=== PATIENT | female | born 1980 | race Hispanic/Latino ===

== ENCOUNTER 2016-09-06 08:22 | Emergency (ER) | payer SELFPAY ==
[2016-09-06] MEDS ORDERED: INSULIN REGULAR HUMAN 100 UNITS/ML ML ONE (10:03)
[2016-09-06] MEDS ORDERED: BACITRACIN 1 APP/PKT PKT TOPICAL ONE (10:33)
--- NOTE | 2016-09-06 11:12 | ER PHYSICIAN DOCUMENTATION ---
Physician Documentation [facility] Name:Joellen Muhammad Age:36 yrs Sex:Female :1980 Arrival Date:09/06/2016 Time:08:22 Bed1 Private MD: iNc Marcus Disposition: 09/06/16 09:41 Discharged to Home/Self Care. Impression: Diabetes Mellitus, Type 1 with Hyperglycemia, Wound Infection. - Condition is Fair. - Discharge Instructions: DIABETIC HYPERGLYCEMIA, Blebs - BLISTER. - Prescriptions for Bactrim DS 160- 800 mg Oral Tablet - take 1 tablet by ORAL route every 12 hours for 7 days; 14 tablet. - Medical Reconciliation form form. - Follow up: Replaced By [facility]; When: 4- 6 days; Reason: Recheck today's complaints, Continuance of care. - Problem is an ongoing problem. - Symptoms have improved. HPI: 09/06 09:28 This 36 yrs old Female presents to ER via Private Vehicle with complaints of sc Wound Infection - left foot. 09:28 The patient presents with infected blister. The complaints affect the left foot. sc Context: The problem was sustained at home, resulted from shoes rubbing, peripheral neuropathy, feels like arches collapsing. Associated signs and symptoms: Pertinent positives: hyperglycemia, non compliant with insulin. Historical: - Allergies: No known drug Allergies; - Home Meds: 1. insulin glargine 100 unit/mL (3 mL) subcutaneous inpn (Last dose: Unknown) - PMHx: Diabetes - IDDM; - PSHx: None; - Tetanus: < 10 years. - Ebola Screening: : Patient negative for fever greater than or equal to 101.5 degrees Fahrenheit, and additional compatible Ebola Virus Disease symptoms. Patient denies exposure to infectious person. Patient denies travel to an Ebola-affected area in the 21 days before illness onset. No symptoms or risks identified at this time. . - Immunization history: Flu Vaccine < 1 year. - Social history: Smoking status: Patient uses tobacco products, current every day smoker. Patient uses Patient/guardian denies using marijuana. ROS: 09:32 MS/extremity: Positive for injury or acute deformity, erythema. sc 09:32 Constitutional: Negative for fever, chills, and weight loss. sc Eyes: Negative for injury, pain, redness, and discharge. ENT: Negative for injury, pain, and discharge. Neck: Negative for injury, pain, and swelling. Cardiovascular: Negative for chest pain, palpitations, and edema. Respiratory: Negative for shortness of breath, cough, wheezing, and pleuritic chest pain. Abdomen/GI: Negative for abdominal pain, nausea, vomiting, diarrhea, and constipation. Back: Negative for injury and pain. MS/Extremity: Negative for injury and deformity. Skin: Negative for injury, rash, and discoloration. 09:32 Neuro: Negative for headache, weakness, numbness, tingling, and seizure. Exam: Constitutional: This is a well developed, well nourished patient who is awake, alert, and in no acute distress. Head/Face: Normocephalic, atraumatic. Eyes: Pupils equal round and reactive to light, extra-ocular motions intact. Lids and lashes normal. Conjunctiva and sclera are non-icteric and not injected. Cornea within normal limits. Periorbital areas with no swelling, redness, or edema. Neck: Trachea midline, no thyromegaly or masses palpated, and no cervical lymphadenopathy. Supple, full range of motion without nuchal rigidity, or vertebral point tenderness. No meningismus. Chest/axilla: Normal chest wall appearance and motion. Nontender with no deformity. No lesions are appreciated. Cardiovascular: Regular rate and rhythm with a normal S1 and S2. No gallops, murmurs, or rubs. Normal PMI, no JVD. No pulse deficits. Respiratory: Lungs have equal breath sounds bilaterally, clear to auscultation and percussion. No rales, rhonchi or wheezes noted. No increased work of breathing, no retractions or nasal flaring. Abdomen/GI: Soft, non-tender, with normal bowel sounds. No distension or tympany. No guarding or rebound. No evidence of tenderness throughout. Back: No spinal tenderness. No costovertebral tenderness. Full range of motion. 09:32 Neuro: Awake and alert, GCS 15, oriented to person, place, time, and situation. sc Cranial nerves II-XII grossly intact. Motor strength 5/5 in all extremities. Sensory grossly intact. Cerebellar exam normal. Normal gait. 09:32 Musculoskeletal/extremity: Extremities: grossly normal except: infected 1 cm blister on erythematous base. Vital Signs: 08:47 BP 130 / 85; Pulse 113; Resp 24; Temp 98.0; Pulse Ox 93% on R/A; Weight 127.01 kg; cb Height 5 ft. 5 in. (165.10 cm); Pain 3/10; 08:47 Body Mass Index 46.59 (127.01 kg, 165.10 cm) cb MDM: 08:29 Patient medically screened. nc 09:33 Differential diagnosis: cellulitis. Data reviewed: vital signs, nurses notes, old nc medical records, and as a result, I will discharge patient. Counseling: I had a detailed discussion with the patient and/or guardian regarding: the historical points, exam findings, and any diagnostic results supporting the discharge/admit diagnosis, lab results, radiology results, to return to the emergency department if symptoms worsen or persist or if there are any questions or concerns that arise at home, long discussion re DM and insulin and follow up with podiatry and foot wound care. 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 sc Possiblity had been discussed with patient and ortho follow urged. Copy of official read and ortho follow up mailed to patient as phone not answered.. 09/06 09:07 Order name: ANKLE; 3[place] [id number]; Complete Time: 12:46 EDMS 09/06 12:46 Interpretation: Abnormal: osteochondritis dessicans or talus fx. nc 09/06 09:07 Order name: [place] 3[place] [id number]; Complete Time: 09:43 EDMS 09/06 09:43 Interpretation: Normal. nc 09/06 13:31 Order name: ANKLE; 3[place] [id number] EDMS 09/06 09:03 Order name: FSBS; Complete Time: 09:03 cb 09/06 09:43 Order name: Wound Care; Complete Time: 10:21 nc Dispensed Medications: 10:10 Drug: Insulin Regular Human 10 units; Route: Sub-Q; Site: left lower abdomen; cb 11:26 Follow up: Response: No adverse reaction cb 10:20 Drug: Bacitracin Ointment (500 unit/g) 1 application; Route: Topical; Site: affected cb area; 11:26 Follow up: Response: No adverse reaction Point of Care Testing: Blood Glucose: 09:03 Blood Glucose: 378 mg/dL; cb Ranges: Critical Glucose Levels:Adult <50 mg/dl or >400 mg/dl <40 mg/dl or >180 mg/dl Signatures: Tova Henriquez RN RN cb Nic Jung MD MD nc
--- NOTE | 2016-09-06 11:12 | ER NURSING DOCUMENTATION ---
Nurse's Notes [facility] Name:Joellen Muhammad Age:36 yrs Sex:Female :1980 Arrival Date:09/06/2016 Time:08:22 Bed1 Private MD: Diagnosis:Diabetes Mellitus, Type 1 with Hyperglycemia;Wound Infection Presentation: 09/06 08:36 Presenting complaint: Patient states: I have infection of Left foot. Transition of cb care: Home. 08:36 Method Of Arrival: Private Vehicle cb 08:36 Acuity: MARQUITA 3 cb Triage Assessment: 08:37 Injury Description: patient states that she sprained her ankle right around [employer] day and her shoe is fitting oddly. 08:43 General: Appears in no apparent distress, well groomed, Behavior is cooperative. Pain: cb Complains of pain in instep of left foot Pain currently is 3 out of 10 on a pain scale. EENT: Denies nasal congestion. Neuro: Level of Consciousness is awake, alert, Oriented to person, place, time, event. Cardiovascular: Pulses are 2+ in left dorsalis pedis artery. Respiratory: Airway is patent Trachea midline Respiratory effort is even, unlabored, Respiratory pattern is regular. GI: Reports tolerance of fluids, tolerance of food. : Denies burning with urination. Derm: Skin is intact, large blister that has been oozing with surrounding redness. Musculoskeletal: No deficits noted. Reports numbness in left foot. Historical: - Allergies: No known drug Allergies; - Home Meds: 1. insulin glargine 100 unit/mL (3 mL) subcutaneous inpn (Last dose: Unknown) - PMHx: Diabetes - IDDM; - PSHx: None; - Tetanus: < 10 years. - Ebola Screening: : Patient negative for fever greater than or equal to 101.5 degrees Fahrenheit, and additional compatible Ebola Virus Disease symptoms. Patient denies exposure to infectious person. Patient denies travel to an Ebola-affected area in the 21 days before illness onset. No symptoms or risks identified at this time. . - Immunization history: Flu Vaccine < 1 year. - Social history: Smoking status: Patient uses tobacco products, current every day smoker. Patient uses Patient/guardian denies using marijuana. Screenin:49 Infectious Disease Risk None. Abuse screen: Denies threats or abuse. Denies injuries cb from another. Nutritional screening: On diabetic diet. Vital Signs: 08:47 BP 130 / 85; Pulse 113; Resp 24; Temp 98.0; Pulse Ox 93% on R/A; Weight 127.01 kg; cb Height 5 ft. 5 in. (165.10 cm); Pain 3/10; 08:47 Body Mass Index 46.59 (127.01 kg, 165.10 cm) cb ED Course: 08:26 Patient arrived in ED. lr3 08:29 Nic Jung MD is Attending Physician. sc 08:35 Tova Henriquez, AMBER is Primary Nurse. cb 08:37 Triage completed. cb 08:49 Valuables Remains with patient Patient has correct armband on for positive cb identification. Bed in low position. Call light in reach. Pulse Ox - RN Monitoring Only NIBP On - RN Monitoring Only. 08:58 Port Xray Completed. ms 09:07 ANKLE; 3[place] [id number] In Process Unspecified. EDMS 09:07 [place] [id number] In Process Unspecified. EDMS 09:11 ANKLE; 3[place] [id number] Sent. ms 09:11 [place] [id number] Sent. ms 09:34 [facility] is Referral Physician. sc 10:10 Called [facility] so patient could arrange to meet with Instrument Person so she could get cb her help with her prescription to get filled today. 10:15 Wound care to large blister removed by scissors, patient tolerated located on instep of cb left foot was cleaned with Hibiclens, debrided using suture removal scissors Patient tolerated well. 10:25 Wound care Band-Aid and bacitracin applied. cb Administered Medications: 10:10 Drug: Insulin Regular Human 10 units; Route: Sub-Q; Site: left lower abdomen; cb 11:26 Follow up: Response: No adverse reaction cb 10:20 Drug: Bacitracin Ointment (500 unit/g) 1 application; Route: Topical; Site: affected cb area; 11:26 Follow up: Response: No adverse reaction cb Point of Care Testing: Blood Glucose: 09:03 Blood Glucose: 378 mg/dL; cb Ranges: Outcome: 08:37 Discharged to home ambulatory. cb 08:37 Condition: stable 08:37 Discharge instructions given to patient, Instructed on discharge instructions, follow up and referral plans. Demonstrated understanding of instructions, medications, Prescriptions given X 1. 09:41 Discharge ordered by MD. topete 11:10 Patient left the ED. cy 09/07 09:14 Discharge F/U Call: Unable to reach: no answer lp Signatures: Dispatcher [employer] Tova Langford RN RN cb Pavlish, Lena, RN RN lp Chew, Scott, MD MD sc Strickland Kalyani Hiedi Keaen [id number]
--- NOTE | 2016-09-06 12:02 | RADIOLOGY REPORT ---
Three views of the left ankle demonstrate no displaced fracture, subluxation or bony destructive change. The mortise is intact. There is a 12 mm mixed lytic and sclerotic lesion involving the medial aspect of the talar dome, consistent with a focus of osteochondritis desiccans. No other bony abnormality is identified. The visualized joints appear unremarkable. 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 The findings were personally reviewed with Dr. Jung on 09/06/2016 at 1010 hours. TODD
== END 2016-09-06 11:11 | disposition home or self-care (01) ==
LOC: ER 08:22
DX: T79.8XXA Other early complications of trauma, initial encounter (principal); S90.822S Blister (nonthermal), left foot, sequela; E10.65 Type 1 diabetes mellitus with hyperglycemia
CPT/HCPCS: 96372; 99284; J1815